=== PATIENT | male | born 1975 | race Caucasian/White ===

== ENCOUNTER 2018-12-12 12:19 | Inpatient (IN) | payer MEDICAID, SELFPAY ==
[2018-12-12] VITALS (7 sets, daily range): BP systolic 127–133; BP diastolic 79–98; PULSE 68–94; RESP 10–20; TEMP 36.4–36.8; O2SAT 92–96; BMI 28.5; BMI 28.1
--- NOTE | 2018-12-12 13:34 | ED.VIS.GEN ---
History of Present Illness Chief Complaint: Substance Abuse Informant: Patient, - - Documents from [facility] and [facility] Onset: - - History of alcoholism requesting detox Context: Sudden Onset - Patient reports symptoms withdrawal with tremors, palpitations, sweating and anxiousness Timing: Continuous Quality: Alcohol withdrawal Location: Not applicable Current Severity: Moderate Maximum Severity: Moderate Worsened by: Abstinence Associated Symptoms: Anxiousness, palpitations, tremors, diaphoresis Narrative: Patient was evaluated at [facility] in [facility]. He was to be a direct admit to [facility]. He was sent to the emergency department for clearance. Records accompanying him. He had a significant work-up. He presently is describing symptoms of withdrawal since he has not had anything to drink. Prior similar symptoms: Yes Recent Illness/Hospitalization: No - Past Medical History (1) Alcoholism Status: Acute Past Medical History - Allergies and Home Meds Allergies/Adverse Reactions: Allergies No Known Allergies Allergy (Verified 12/12/18 12:19) Primary Care Physician: Care Physician,No Primary [Primary Care Provider] - Prior records reviewed: Yes - Records from outside facility Surgical History: no surgical history Lives: Alone Smoking Status: Current every day smoker Alcohol: Heavy Review of Systems General: Reports: Malaise Eyes: Denies: Visual changes - bilaterally, Blurred Vision - bilaterally, Diplopia ENT: Denies: Bilateral ear pain, Rhinorrhea, Sore throat Cardiovascular: Reports: Palpitations. Denies: Chest pain, Heart racing Respiratory: Denies: Dyspnea, Cough, Dyspnea on exertion Gastrointestinal: Reports: Abdominal pain, Nausea Genitourinary: Denies: Dysuria, Hematuria, Frequency Musculoskeletal: Denies: Back pain, Extremity Pain Skin: Denies: Rash, Wounds Neurological: Denies: Headache, Weakness, Numbness Psych: Reports: Depression Hematologic: Denies: Easy bruising Allergy: Denies: Uticaria, Swelling of the mouth Physical Exam Vital Signs/Narrative: Vital Signs Temp Pulse Resp BP Pulse Ox 12/12/18 12:20 98.2 F 88 16 127/81 H 94 Inital Vital Signs reviewed: Yes General: Well nourished, Well developed, - - Patient appears anxious Head: Normocephalic, Atraumatic Eyes: Perrl, EOMI ENT: Moist mucous membranes, No rhinorrhea Neck: Supple, Nontender Cardiovascular: Regular rhythm, No murmurs, Normal S1, Normal S2, Tachycardia Respiratory: No distress, CTA bilaterally, Chest nontender Abdomen: Soft, Nontender, Nondistended, Normal bowel sounds Back: Nontender, Normal Inspection Extremities: Nontender, No edema Skin: Normal color, No rash Neurological: Alert, Oriented x3, Cranial nerves II-XII grossly intact, Normal Strength, Normal Sensation, Normal DTR - Deep tendon reflexes are 3-4+ and symmetric., - - Gait was not assessed. Psychological: Normal affect, Normal Mood Diagnostic/Tx/Re-eval - Medical Decision Making Records from outside facility reviewed. Patient has symptoms consistent with withdrawal. He is tachycardic, hyperreflexic, anxious and slightly diaphoretic. Valium was ordered IV. Charge nurse has been in communication with [facility] regarding his admission. ED Disposition - Plan for ED Patient: Disposition: Acute Care Hospital [facility] Diagnosis: Alcohol withdrawal seizure without complication Referrals: Care Physician,No Primary [Primary Care Provider] -
--- NOTE | 2018-12-12 13:40 | ED.RN ---
CALLED KAILASH FALL
[2018-12-12] MEDS: diazePAM 10 MG/2 ML Syringe 8 MG IV (13:54)
[2018-12-12] MEDS: Methocarbamol 750 MG Tablet PO (16:09)
[2018-12-12] MEDS: chlordiazePOXIDE 25 MG Capsule PO ×2 (16:09→20:52)
[2018-12-12] MEDS: Thiamine Hydrochloride 100 MG Tablet PO (16:09)
[2018-12-12] MEDS: Folic Acid 1 MG Tablet PO (16:10)
[2018-12-12] MEDS: Acetaminophen 500 MG Tablet PO ×2 (16:10→21:29)
[2018-12-12] MEDS: Ibuprofen 600 MG Tablet PO (16:10)
[2018-12-12] MEDS: LORazepam 2 MG/ML Syringe IV (16:23)
[2018-12-12] MEDS: 0.9% NaCl Peripheral Flush Adult/Peds IV ×2 (16:24→20:51)
--- NOTE | 2018-12-12 17:10 | HP.PCM_ITS ---
Problem List (1) Alcohol withdrawal Status: Acute Qualifiers: Complication of substance-induced condition: uncomplicated Qualified Code(s): F10.230 - Alcohol dependence with withdrawal, uncomplicated (2) Alcoholism Status: Chronic History of Present Illness Date of Admission: 12/12/18 Chief Complaint: Alcohol withdrawal, chronic alcoholism The patient is a 43 year old M who was seen in the emergency room at [facility] after being transferred from [facility] for alcohol detox. He had been seen in the emergency room at [facility], blood alcohol level was above 300, he had been given IV Ativan as well as oral phenobarbital at [facility] for withdrawal symptoms. Patient complains of tremor, agitation, diaphoresis, and increased heart rate. No labs were drawn in the emergency room. Medical stabilization program on [facility], patient denies any suicidal ideation and wants to go through detox program. Patient states that he has been through detox before and he has had periods of sobriety which have lasted 2 to 3 years at a time. Patient drinks 3-4 3 packs of 16 ounce but ice per day and vodka occasionally, denies any recreational drug usage or other drug usage. Past Medical History Past Medical History (Chronic Problems): Chronic Problems Alcoholism (Chronic) Allergies No Known Allergies Allergy (Verified 12/12/18 12:19) Home Medications: Ambulatory Orders Medication Instructions Recorded NK 12/12/18 Surgical History: no surgical history Psychiatric History: No pertinent psych hx Lives: Alone Smoking Status: Current every day smoker Tobacco Use: Cigarettes Alcohol: Heavy Drugs: None - *Family History Maternal History Items: Cancer - Lung cancer Paternal History Items: COPD Review of Systems Constitutional: Denies: Anorexia, Chills, Fever, Night Sweats, Malaise, Weakness, Weight Change, Fatigue Eyes: Denies: Cataracts, Conjunctivae Inflammation, Double vision HEENT: Denies: Difficulty Swallowing, Dysphasia, Ear Pain, Eye Pain, Hearing Changes, Nasal bleeding, Nasal Congestion, Post Nasal Drip Cardiovascular: Denies: Chest Pain, Claudication, Chest Pressure, Chest Tightness, Edema, Heaviness, Palpitations Respiratory: Denies: Cough, Hemoptysis, Pleuritic Pain, Shortness of Breath, Shortness of breath at rest, Shortness of breath upon exertion Gastrointestinal: Denies: Abdominal Pain, Constipation, Diarrhea, Hematemesis, Hematochezia, Nausea, Melena, Vomiting Genitourinary: Denies: Dysuria, Frequency, Hematuria, Hesitancy, Urgency Musculoskeletal: Denies: Back Pain, Foot Pain, Hand Pain, Joint Pain, Joint stiffness, Joint swelling, Joint Tenderness, Leg Pain Skin: Denies: Dryness, Pruritis, Rash Neurological: Reports: Tremor - Mild tremor currently. Denies: Balance problems, Blurred vision, Double vision, Change in Speech, Slurred speech, Confusion, Difficulty swallowing, Focal weakness, Headaches, Incoordination, Numbness, Tingling Psychiatric: Reports: Anxiety - he reports feeling anxious while going through withdrawal, he complains of some mild agitation, diaphoresis, and tremor.. Denies: Depression, Homicidal Ideations, Suicidal Ideations Endocrine: Denies: Change in Body Habitus, Heat/ Cold Intolerance, Polydipsia, Polyuria Hematologic/ Lymphatic: Denies: Adenopathy, Anemia, Easy Bruising, Easy Bleeding, Petechiae, Purpura VTE Information - Inpt Only VTE Present on Admission: No VTE Mechan Device Prophylaxis: None VTE Pharm Prophylaxis ordered?: No Reason prophylaxis not ordered:: Treatment Not Indicated Patient Problems: Active and Suspected Problems Alcohol withdrawal (Acute) - Physical Exam General: Alert, Oriented x3, Cooperative, Well developed, Well nourished, - - Patient appears to be anxious, he is alert and oriented x3, he appears tremorous HEENT: Atraumatic, PERRLA, EOMI, Normocephalic Oral: Moist Mucosa Neck: Supple, No JVD, Negative Carotid Bruits, No Nuchal Rigidity, Trachea Midline, Thyroid Normal Size and Texture Lungs: Clear to auscultation, Normal air movement, No rhonchi, No wheeze, No rales Cardiovascular: Regular rate, Regular Rhythm, Normal S1, Normal S2, No murmurs, No Ectopic Activity Abdomen: Bowel Sounds Present, Soft, Non Tender, Non-Distended, No hernias noted Extremities: No clubbing, No cyanosis, No edema, Capillary Refill Less than 3 Seconds Skin: No rashes, No breakdown Musculoskeletal: No Tenderness to Palpation of Joints or Extremities Neurological: Cranial nerves II-XII grossly intact, Neuro grossly intact, Muscle tone normal, Sensory exam intact to light touch and pain Psych/Mental Status: Normal Affect, Appropriate, Alert and oriented to time, place, person, mood and affect Vital Signs Temp Pulse Resp BP Pulse Ox 98.2 F 81 18 133/98 H 96 12/12/18 15:45 12/12/18 15:45 12/12/18 15:45 12/12/18 15:45 12/12/18 15:45 Oxygen Delivery Method Room Air Weight: 94.1 kg Body Mass Index (BMI) 28.1 Assessment/Plan All Active Problems Alcohol withdrawal seizure without complication (Ruled-out) Alcohol withdrawal (Acute) #1 acute alcohol withdrawal without complications-[facility], order sets were filled out and patient will be monitored. [facility] will see the patient for outpatient follow-up arrangements #2 chronic alcoholism Code Visit Inpatient E&M: 36944 Init Hosp L3
[2018-12-12] MEDS: LORazepam 1 MG Tablet 2 MG PO (18:40)
[2018-12-13] VITALS (11 sets, daily range): BP systolic 108–130; BP diastolic 71–90; PULSE 78–91; RESP 16–20; TEMP 36.3–36.8; O2SAT 94–98
[2018-12-13] MEDS: cloNIDine HCl 0.1 MG Tablet PO ×4 (01:20→21:14)
[2018-12-13] MEDS: hydrOXYzine PAM 25 MG Capsule 50 MG PO ×2 (01:20→21:14)
[2018-12-13] MEDS: Dicyclomine 10 MG Capsule 20 MG PO ×3 (01:20→16:15)
[2018-12-13] MEDS: chlordiazePOXIDE 25 MG Capsule PO ×3 (03:05→16:17)
[2018-12-13] MEDS: Ibuprofen 600 MG Tablet PO ×2 (07:04→16:15)
[2018-12-13 08:11] LABS: Absolute Lymphocyte Count 1.65 X10^3/ul (0.83-4.51); Absolute Neutrophil Count 3.3 X10^3/uL (2.0-7.7); Basophil# 0.02 X10^3/uL; Basophil% 0.4 % (0-1); Eosinophil# 0.19 X10^3/uL; Eosinophils% 3.5 % (0-5); Hematocrit 43.7 % (40-54); Hemoglobin 14.9 g/dl (13.0-16.5); Lymphocyte # 1.65 X10^3/ul (4.0); Mean Corp Hgb Conc 34.1 g/gl (32-36); Mean Corpuscular Hgb 31.2 pg (27.0-32.0); Mean Corpuscular Volume 91.4 fL (80-94); Mean Platelet Vol. 9.8 fl (6.2-12.0); Monocyte# 0.31 X10^3/uL; Monocyte% 5.6 % (0-10); Neutrophil # 3.32 X10^3/uL (2.7-7.7); Neutrophil % 60.3 % (47-70); POSITIVE COUNT NO; POSITIVE DIFFERENTIAL NO; POSITIVE MORPHOLOGY NO; Platelet Count 184 K/mm3 (150-450); RBC Distribution Width CV 13.9 % (11.6-14.6); RBC Distribution Width SD 45.9 fl (35.1-43.9); Red Blood Count 4.78 M/mm3 (4.6-6.2); White Blood Count 5.5 K/mm3 (4.4-11.0)
[2018-12-13 08:23] LABS: International Normalized Ratio 1.1; Prothrombin Time (Protime)PT. 13.6 SECONDS (11.7-14.9)
[2018-12-13 08:31] LABS: ALB/GLOB Ratio 0.9 RATIO (0.9-2.4); AST(SGOT) 155 U/L (15-37); Alanine Aminotransfer ALT/SGPT 147 U/L (16-61); Albumin, Serum 3.3 g/dL (3.2-5.0); Alkaline Phosphatase 78 U/L (45-117); Anion Gap 3 (5-15); BUN 17 mg/dL (7-18); BUN/Creat Ratio 19.3 RATIO (10-20); Calcium,Total 8.5 mg/dL (8.5-10.1); Chloride 106 mmol/L (98-107); Creatinine, Serum 0.88 mg/dL (0.70-1.30); EST Glomerular Filtration Rate 100 mL/min (>60); Est Glom Filt Rate - Afr Amer 121 mL/min (>60); GGTP 166 U/L (15-85); Globulin 3.8 g/dL (2.2-4.2); Glucose 102 mg/dL (74-106); Magnesium 1.9 mg/dL (1.6-2.6); Phosphorus 3.7 mg/dL (2.5-4.9); Potassium 3.8 mmol/L (3.5-5.1); Protein, Total 7.1 g/dL (6.4-8.2); Sodium Level 137 mmol/L (136-145)
[2018-12-13] MEDS: Folic Acid 1 MG Tablet PO (09:06)
[2018-12-13] MEDS: Thiamine Hydrochloride 100 MG Tablet PO (09:06)
[2018-12-13] MEDS: Multivitamins,Therapeutic Tablet 1 TABLET PO (09:07)
--- NOTE | 2018-12-13 09:38 | PCM.PN.HOSP ---
Patient Problems: Active and Suspected Problems Alcohol withdrawal (Acute) Subjective: The patient was admitted with acute alcohol withdrawal syndrome. Patient drinks alcohol heavily, vodka a day along with 3 cane of 24 ounce [place] Light. Denies GI bleed, hematemesis, melena or hematochezia. No prior history of EGD or colonoscopy. Patient still has tremors and second Nava. Complain of mild loose bowel movement and abdominal cramps. Has blurry vision but denies visual, auditory or tactile hallucinations. Labs shows elevated transaminases, GGT and total bilirubin 1.5 suggestive of alcoholic hepatitis. INR 1.1. Vitals/I&O's: Vital Signs Temp Pulse Resp BP Pulse Ox 97.6 F L 87 18 117/90 H 94 12/13/18 06:53 12/13/18 06:53 12/13/18 06:53 12/13/18 06:53 12/13/18 06:53 Oxygen Delivery Method Room Air Weight: 207 lb 7.28 oz Body Mass Index (BMI) 28.1 Intake and Output for Last 24 Hours 12/11/18 12/12/18 12/13/18 23:59 23:59 23:59 Intake Total 550 / 550 100 / 100 Balance 550 / 550 100 / 100 General: Alert, Oriented x3, Cooperative HEENT: Atraumatic, PERRLA, EOMI, Normocephalic Neck: Supple, No JVD, Negative Carotid Bruits Lungs: Clear to auscultation, No rhonchi, No wheeze, No rales, Diminished Cardiovascular: Regular rate, Regular Rhythm, Normal S1, Normal S2, No murmurs Abdomen: Bowel Sounds Present, Soft, Non Tender, Non-Distended Extremities: No edema, Capillary Refill Less than 3 Seconds Skin: No rashes, No breakdown Musculoskeletal: No Tenderness to Palpation of Joints or Extremities Neurological: Cranial nerves II-XII grossly intact, Deep Tendon Reflexes 2+/4 and Symmetrical, Neuro grossly intact Psych/Mental Status: Anxious, Restless, Alert and oriented to time, place, person, mood and affect Laboratory Results 12/13/18 07:45: WBC 5.5, RBC 4.78, Hgb 14.9, Hct 43.7, MCV 91.4, MCH 31.2, MCHC 34.1, RDW 13.9, RDW Differential 45.9 H, Plt Count 184, MPV 9.8, Immature Gran % (Auto) 0.200, Neut % (Auto) 60.3, Lymph % (Auto) 30.0, [place] % (Auto) 5.6, Eos % (Auto) 3.5, Baso % (Auto) 0.4, Absolute Neuts (auto) 3.3, Absolute Lymphs (auto) 1.65, Total Counted Not Reportable 12/13/18 07:45: PT 13.6, INR 1.1 12/13/18 07:45: Sodium 137, Potassium 3.8, Chloride 106, Carbon Dioxide 28.0, Anion Gap 3 L, BUN 17, Creatinine 0.88, Estim Creat Clear Calc 118.80, Est GFR (MDRD) Af Amer 121, Est GFR (MDRD) Non-Af 100, BUN/Creatinine Ratio 19.3, Glucose 102, Calcium 8.5, Phosphorus 3.7, Magnesium 1.9, Total Bilirubin 1.50 H, GGT 166 H, AST 155 H, ALT 147 H, Alkaline Phosphatase 78, Total Protein 7.1, Albumin 3.3, Globulin 3.8, Albumin/Globulin Ratio 0.9 Current Medications Acetaminophen (Tylenol) 500 mg PO Q4H PRN PRN PRN Reason: Temp > 100.4 F Last Admin: 12/12/18 21:29 Dose: 500 mg Chlordiazepoxide (Librium) 50 mg PO Q8H WANG; Taper Stop: 12/15/18 16:59 Last Admin: 12/13/18 09:20 Dose: 50 mg Clonidine (Catapres) 0.1 mg PO Q2H PRN PRN PRN Reason: sweats Last Admin: 12/13/18 01:20 Dose: 0.1 mg Dicyclomine HCl (Bentyl) 20 mg PO Q6H PRN PRN PRN Reason: cramping Last Admin: 12/13/18 09:06 Dose: 20 mg Folic Acid (Folic Acid) 1 mg PO DAILYCM WANG Stop: 12/14/18 08:01 Last Admin: 12/13/18 09:06 Dose: 1 mg Hydroxyzine Pamoate (Vistaril Pamoate Capsule) 50 mg PO Q6H PRN PRN PRN Reason: ANXIETY Last Admin: 12/13/18 01:20 Dose: 50 mg Sodium Chloride () 250 mls @ 15 mls/hr IV .[id number] PRN PRN Reason: SALINE FLUSH Ibuprofen (Motrin) 600 mg PO Q8H PRN PRN PRN Reason: Mild-Moderate Pain (1-5/10) Last Admin: 12/13/18 07:04 Dose: 600 mg Lorazepam (Ativan) 2 mg PO Q2H PRN PRN; Protocol PRN Reason: CIWA score > 8 but <15 Last Admin: 12/12/18 18:40 Dose: 2 mg Lorazepam (Ativan) 2 mg IV Q2H PRN PRN; Protocol PRN Reason: CIWA score > 8 but <15 Lorazepam (Ativan) 1 mg IV Q4H PRN PRN PRN Reason: Severe Anxiety Lorazepam (Ativan) 2 mg IV X1 PRN PRN Reason: Seizure Lorazepam (Ativan) 2 mg PO UD PRN; Protocol PRN Reason: CIWA score >/=15. Lorazepam (Ativan) 2 mg IV UD PRN; Protocol PRN Reason: CIWA score >/=15. Last Admin: 12/12/18 16:23 Dose: 2 mg Methocarbamol (Methocarbamol) 750 mg PO Q6H PRN PRN PRN Reason: Muscle Aches Last Admin: 12/12/18 16:09 Dose: 750 mg [facility] Last Admin: 12/13/18 09:07 Dose: 1 tablet Nicotine (Nicoderm Cq (Pbkc)) 21 mg TRANSDERM. DAILY [facility] Last Admin: 12/13/18 09:07 Dose: 21 mg Sodium Chloride () 5 - 15 ml IV UD PRN PRN Reason: SALINE FLUSH Last Admin: 12/12/18 20:51 Dose: 10 ml Thiamine HCl (Vitamin B1) [facility] Stop: 12/14/18 08:01 Last Admin: 12/13/18 09:06 Dose: 100 mg Medical Necessity - Tobacco Use Smoking Status: Current every day smoker Tobacco Use: Cigarettes Assessment/Plan All Active Problems Alcohol withdrawal seizure without complication (Ruled-out) Alcohol withdrawal (Acute) This is a 43-year-old gentleman with history of chronic alcohol use vodka every day along with 3 cane of 24 ounce [place] Light and chronic smoker was admitted on [facility] floor for acute alcohol withdrawal syndrome. Patient was [facility] from [facility] to [facility] ER with alcohol level more than 300. Patient was given IV Ativan and oral phenobarbital. Patient has history of sobriety for 2 to 3 years after alcohol detox last time. Denies other substance use or recreational use or drugs including [id number] cold medications. Denies GI bleed, hematemesis, melena or hematochezia. No prior history of EGD or colonoscopy. 1. Acute alcohol withdrawal syndrome: Patient still has tremors, anxiety and restlessness. Complain of mild loose bowel movement and abdominal cramps. Has blurry vision but denies visual, auditory or tactile hallucinations. On order set for medical stabilization for alcohol withdrawal. emergency department manager consult for [facility]. CIWA 7 2. Chronic alcohol use and dependence with alcoholic hepatitis: Labs shows elevated transaminases AST 155, ALT 147, GGT 166 and total bilirubin 1.5 suggestive of alcoholic hepatitis. INR 1.1. 3. Chronic smoker: On nicotine patch. Smoking cessation and alcohol cessation advised Laboratory Results 12/13/18 07:45: WBC 5.5, RBC 4.78, Hgb 14.9, Hct 43.7, MCV 91.4, MCH 31.2, MCHC 34.1, RDW 13.9, RDW Differential 45.9 H, Plt Count 184, MPV 9.8, Immature Gran % (Auto) 0.200, Neut % (Auto) 60.3, Lymph % (Auto) 30.0, [place] % (Auto) 5.6, Eos % (Auto) 3.5, Baso % (Auto) 0.4, Absolute Neuts (auto) 3.3, Absolute Lymphs (auto) 1.65, Total Counted Not Reportable 12/13/18 07:45: PT 13.6, INR 1.1 12/13/18 07:45: Sodium 137, Potassium 3.8, Chloride 106, Carbon Dioxide 28.0, Anion Gap 3 L, BUN 17, Creatinine 0.88, Estim Creat Clear Calc 118.80, Est GFR (MDRD) Af Amer 121, Est GFR (MDRD) Non-Af 100, BUN/Creatinine Ratio 19.3, Glucose 102, Calcium 8.5, Phosphorus 3.7, Magnesium 1.9, Total Bilirubin 1.50 H, GGT 166 H, AST 155 H, ALT 147 H, Alkaline Phosphatase 78, Total Protein 7.1, Albumin 3.3, Globulin 3.8, Albumin/Globulin Ratio 0.9 Code Visit Inpatient E&M: 82274 Subs Hosp L3
--- NOTE | 2018-12-13 09:50 | PN_ITS ---
Patient Problems: Active and Suspected Problems Alcohol withdrawal (Acute) Subjective: The patient was admitted with acute alcohol withdrawal syndrome. Patient drinks alcohol heavily, vodka a day along with 3 cane of 24 ounce [place] Light. Denies GI bleed, hematemesis, melena or hematochezia. No prior history of EGD or colonoscopy. Patient still has tremors and second Nava. Complain of mild loose bowel movement and abdominal cramps. Has blurry vision but denies visual, auditory or tactile hallucinations. Labs shows elevated transaminases, GGT and total bilirubin 1.5 suggestive of alcoholic hepatitis. INR 1.1. Vitals/I&O's: Vital Signs Temp Pulse Resp BP Pulse Ox 97.6 F L 87 18 117/90 H 94 12/13/18 06:53 12/13/18 06:53 12/13/18 06:53 12/13/18 06:53 12/13/18 06:53 Oxygen Delivery Method Room Air Weight: 207 lb 7.28 oz Body Mass Index (BMI) 28.1 Intake and Output for Last 24 Hours 12/11/18 12/12/18 12/13/18 23:59 23:59 23:59 Intake Total 550 / 550 100 / 100 Balance 550 / 550 100 / 100 General: Alert, Oriented x3, Cooperative HEENT: Atraumatic, PERRLA, EOMI, Normocephalic Neck: Supple, No JVD, Negative Carotid Bruits Lungs: Clear to auscultation, No rhonchi, No wheeze, No rales, Diminished Cardiovascular: Regular rate, Regular Rhythm, Normal S1, Normal S2, No murmurs Abdomen: Bowel Sounds Present, Soft, Non Tender, Non-Distended Extremities: No edema, Capillary Refill Less than 3 Seconds Skin: No rashes, No breakdown Musculoskeletal: No Tenderness to Palpation of Joints or Extremities Neurological: Cranial nerves II-XII grossly intact, Deep Tendon Reflexes 2+/4 and Symmetrical, Neuro grossly intact Psych/Mental Status: Anxious, Restless, Alert and oriented to time, place, person, mood and affect Laboratory Results 12/13/18 07:45: WBC 5.5, RBC 4.78, Hgb 14.9, Hct 43.7, MCV 91.4, MCH 31.2, MCHC 34.1, RDW 13.9, RDW Differential 45.9 H, Plt Count 184, MPV 9.8, Immature Gran % (Auto) 0.200, Neut % (Auto) 60.3, Lymph % (Auto) 30.0, [place] % (Auto) 5.6, Eos % (Auto) 3.5, Baso % (Auto) 0.4, Absolute Neuts (auto) 3.3, Absolute Lymphs (auto) 1.65, Total Counted Not Reportable 12/13/18 07:45: PT 13.6, INR 1.1 12/13/18 07:45: Sodium 137, Potassium 3.8, Chloride 106, Carbon Dioxide 28.0, Anion Gap 3 L, BUN 17, Creatinine 0.88, Estim Creat Clear Calc 118.80, Est GFR (MDRD) Af Amer 121, Est GFR (MDRD) Non-Af 100, BUN/Creatinine Ratio 19.3, Glucose 102, Calcium 8.5, Phosphorus 3.7, Magnesium 1.9, Total Bilirubin 1.50 H, GGT 166 H, AST 155 H, ALT 147 H, Alkaline Phosphatase 78, Total Protein 7.1, Albumin 3.3, Globulin 3.8, Albumin/Globulin Ratio 0.9 Current Medications Acetaminophen (Tylenol) 500 mg PO Q4H PRN PRN PRN Reason: Temp > 100.4 F Last Admin: 12/12/18 21:29 Dose: 500 mg Chlordiazepoxide (Librium) 50 mg PO Q8H WANG; Taper Stop: 12/15/18 16:59 Last Admin: 12/13/18 09:20 Dose: 50 mg Clonidine (Catapres) 0.1 mg PO Q2H PRN PRN PRN Reason: sweats Last Admin: 12/13/18 01:20 Dose: 0.1 mg Dicyclomine HCl (Bentyl) 20 mg PO Q6H PRN PRN PRN Reason: cramping Last Admin: 12/13/18 09:06 Dose: 20 mg Folic Acid (Folic Acid) 1 mg PO DAILYCM WANG Stop: 12/14/18 08:01 Last Admin: 12/13/18 09:06 Dose: 1 mg Hydroxyzine Pamoate (Vistaril Pamoate Capsule) 50 mg PO Q6H PRN PRN PRN Reason: ANXIETY Last Admin: 12/13/18 01:20 Dose: 50 mg Sodium Chloride () 250 mls @ 15 mls/hr IV .[id number] PRN PRN Reason: SALINE FLUSH Ibuprofen (Motrin) 600 mg PO Q8H PRN PRN PRN Reason: Mild-Moderate Pain (1-5/10) Last Admin: 12/13/18 07:04 Dose: 600 mg Lorazepam (Ativan) 2 mg PO Q2H PRN PRN; Protocol PRN Reason: CIWA score > 8 but <15 Last Admin: 12/12/18 18:40 Dose: 2 mg Lorazepam (Ativan) 2 mg IV Q2H PRN PRN; Protocol PRN Reason: CIWA score > 8 but <15 Lorazepam (Ativan) 1 mg IV Q4H PRN PRN PRN Reason: Severe Anxiety Lorazepam (Ativan) 2 mg IV X1 PRN PRN Reason: Seizure Lorazepam (Ativan) 2 mg PO UD PRN; Protocol PRN Reason: CIWA score >/=15. Lorazepam (Ativan) 2 mg IV UD PRN; Protocol PRN Reason: CIWA score >/=15. Last Admin: 12/12/18 16:23 Dose: 2 mg Methocarbamol (Methocarbamol) 750 mg PO Q6H PRN PRN PRN Reason: Muscle Aches Last Admin: 12/12/18 16:09 Dose: 750 mg [facility]it[facility]) [facility] Last Admin: 12/13/18 09:07 Dose: 1 tablet Nicotine (Nicoderm Cq (Pbkc)) 21 mg TRANSDERM. DAILY [facility] Last Admin: 12/13/18 09:07 Dose: 21 mg Sodium Chloride () 5 - 15 ml IV UD PRN PRN Reason: SALINE FLUSH Last Admin: 12/12/18 20:51 Dose: 10 ml Thiamine HCl (Vitamin B1) [facility] Stop: 12/14/18 08:01 Last Admin: 12/13/18 09:06 Dose: 100 mg Medical Necessity - Tobacco Use Smoking Status: Current every day smoker Tobacco Use: Cigarettes Assessment/Plan All Active Problems Alcohol withdrawal seizure without complication (Ruled-out) Alcohol withdrawal (Acute) This is a 43-year-old gentleman with history of chronic alcohol use vodka every day along with 3 cane of 24 ounce [place] Light and chronic smoker was admitted on [facility] floor for acute alcohol withdrawal syndrome. Patient was transferred from [facility] to [facility] ER with alcohol level more than 300. Patient was given IV Ativan and oral phenobarbital. Patient has history of sobriety for 2 to 3 years after alcohol detox last time. Denies other substance use or recreational use or drugs including kuii-qnr-lidarrx cold medications. Denies GI bleed, hematemesis, melena or hematochezia. No prior history of EGD or colonoscopy. 1. Acute alcohol withdrawal syndrome: Patient still has tremors, anxiety and restlessness. Complain of mild loose bowel movement and abdominal cramps. Has blurry vision but denies visual, auditory or tactile hallucinations. On order set for medical stabilization for alcohol withdrawal. water quality manager consult for [facility]. CIWA 7 2. Chronic alcohol use and dependence with alcoholic hepatitis: Labs shows elevated transaminases AST 155, ALT 147, GGT 166 and total bilirubin 1.5 suggestive of alcoholic hepatitis. INR 1.1. 3. Chronic smoker: On nicotine patch. Smoking cessation and alcohol cessation advised Laboratory Results 12/13/18 07:45: WBC 5.5, RBC 4.78, Hgb 14.9, Hct 43.7, MCV 91.4, MCH 31.2, MCHC 34.1, RDW 13.9, RDW Differential 45.9 H, Plt Count 184, MPV 9.8, Immature Gran % (Auto) 0.200, Neut % (Auto) 60.3, Lymph % (Auto) 30.0, [place] % (Auto) 5.6, Eos % (Auto) 3.5, Baso % (Auto) 0.4, Absolute Neuts (auto) 3.3, Absolute Lymphs (auto) 1.65, Total Counted Not Reportable 12/13/18 07:45: PT 13.6, INR 1.1 12/13/18 07:45: Sodium 137, Potassium 3.8, Chloride 106, Carbon Dioxide 28.0, Anion Gap 3 L, BUN 17, Creatinine 0.88, Estim Creat Clear Calc 118.80, Est GFR (MDRD) Af Amer 121, Est GFR (MDRD) Non-Af 100, BUN/Creatinine Ratio 19.3, Glucose 102, Calcium 8.5, Phosphorus 3.7, Magnesium 1.9, Total Bilirubin 1.50 H, GGT 166 H, AST 155 H, ALT 147 H, Alkaline Phosphatase 78, Total Protein 7.1, Albumin 3.3, Globulin 3.8, Albumin/Globulin Ratio 0.9 Code Visit Inpatient E&M: [id number] Subs Hosp L3
[2018-12-13] MEDS: LORazepam 1 MG Tablet 2 MG PO ×3 (10:26→17:27)
[2018-12-13] MEDS: Ondansetron ODT 4 MG Tablet PO (10:26)
[2018-12-13] MEDS: Loperamide 2 MG Capsule PO (10:27)
--- NOTE | 2018-12-13 16:26 | NEWVISION ---
Patient has an appointment for AOD/Behavioral Health for 12/15/2018 at 10am or to be rescheduled if patient has not been discharged in time. Patient has a psychiatry appointment with Dr Clark on [facility] at 10am, or sooner if they are able to move it sooner. Transportation provided upon discharge by patients girlfriend.
--- NOTE | 2018-12-13 16:28 | CHAPLAIN ---
Type of Pastoral Visit _x__ Initial Visit ___ Follow-up Visit ___ On-call Visit ___ General Patient Visit ___ Spiritual Assessment ___ Family Conference ___ Bereavement ___ Rapid Response ___ Code Blue ___ Other (describe below) Pastoral Care Referral From ___ Patient ___ Family ___ Nurse ___ Physician ___ Set Painter ___ Cooking Instructor _x - [employer] Staff Other (describe below) Sacrament/Intervention _x__ Active listening ___ Anointing ___ Pentecostal ___ Bereavement ___ Communion ___ Irais exploration ___ ___ Life review _x__ Prayer ___ Reconciliation ___ Sacrament of Sick ___ Supportive presence ___ Wedding ___ Other (describe below) Pastoral Comments patient asks this field merchandiser to return tomorrow when he is feeling better; pt welcomes prayer support
[2018-12-13] MEDS: Mag Hydrox/Al Hydrox/Simeth 30 ML UDC PO (17:27)
[2018-12-14] VITALS (9 sets, daily range): BP systolic 116–123; BP diastolic 69–87; PULSE 70–90; RESP 14–18; TEMP 36.3–36.7; O2SAT 95–100
[2018-12-14] MEDS: chlordiazePOXIDE 25 MG Capsule PO ×3 (01:42→16:59)
[2018-12-14] MEDS: Loperamide 2 MG Capsule PO ×2 (09:29→15:12)
[2018-12-14] MEDS: Thiamine Hydrochloride 100 MG Tablet PO (09:30)
[2018-12-14] MEDS: Ibuprofen 600 MG Tablet PO ×2 (09:30→20:50)
[2018-12-14] MEDS: Multivitamins,Therapeutic Tablet 1 TABLET PO (09:30)
[2018-12-14] MEDS: LORazepam 1 MG Tablet 2 MG PO ×4 (09:30→20:51)
[2018-12-14] MEDS: cloNIDine HCl 0.1 MG Tablet PO ×3 (09:30→20:51)
[2018-12-14] MEDS: Dicyclomine 10 MG Capsule 20 MG PO (09:31)
--- NOTE | 2018-12-14 10:31 | PCM.PN.HOSP ---
Patient Problems: Active and Suspected Problems Alcohol withdrawal (Acute) Subjective: Patient is still has shaking. Patient has history of mood swing although never have been evaluated for bipolar disorder by psychiatrist. Denies hallucination or delusion. Vitals/I&O's: Vital Signs Temp Pulse Resp BP Pulse Ox 97.4 F L 71 14 118/74 95 12/14/18 09:20 12/14/18 09:20 12/14/18 09:20 12/14/18 09:20 12/14/18 09:18 Oxygen Delivery Method Room Air Weight: 207 lb 7.28 oz Body Mass Index (BMI) 28.1 Intake and Output for Last 24 Hours 12/12/18 12/13/18 12/14/18 23:59 23:59 23:59 Intake Total 550 / 550 800 / 800 640 / 640 Balance 550 / 550 800 / 800 640 / 640 General: Alert, Oriented x3, Cooperative HEENT: Atraumatic, PERRLA, EOMI, Normocephalic Neck: Supple, No JVD, Negative Carotid Bruits Lungs: Clear to auscultation, Normal air movement, No rhonchi, No wheeze, No rales Cardiovascular: Regular rate, Regular Rhythm, Normal S1, Normal S2, No murmurs Abdomen: Bowel Sounds Present, Soft, Non Tender, Non-Distended Extremities: No edema, Capillary Refill Less than 3 Seconds Skin: No rashes, No breakdown Musculoskeletal: No Tenderness to Palpation of Joints or Extremities Neurological: Cranial nerves II-XII grossly intact, Deep Tendon Reflexes 2+/4 and Symmetrical, Neuro grossly intact, Unsteady Gait Psych/Mental Status: Normal Affect, Appropriate Current Medications Acetaminophen (Tylenol) 500 mg PO Q4H PRN PRN PRN Reason: Temp > 100.4 F Last Admin: 12/12/18 21:29 Dose: 500 mg Al Hydroxide/Mg Hydroxide (Mylanta Ii) 30 ml PO Q6H PRN PRN PRN Reason: dyspesia Last Admin: 12/13/18 17:27 Dose: 30 ml Bisacodyl (Dulcolax) 10 mg RECTAL DAILY PRN PRN Reason: Constipation Chlordiazepoxide (Librium) 50 mg PO Q8H WANG; Taper Stop: 12/15/18 16:59 Last Admin: 12/14/18 09:30 Dose: 50 mg Clonidine (Catapres) 0.1 mg PO Q2H PRN PRN PRN Reason: sweats Last Admin: 12/14/18 09:30 Dose: 0.1 mg Dicyclomine HCl (Bentyl) 20 mg PO Q6H PRN PRN PRN Reason: cramping Last Admin: 12/14/18 09:31 Dose: 20 mg Hydroxyzine Pamoate (Vistaril Pamoate Capsule) 50 mg PO Q6H PRN PRN PRN Reason: ANXIETY Last Admin: 12/13/18 21:14 Dose: 50 mg Sodium Chloride () 250 mls @ 15 mls/hr IV .[id number] PRN PRN Reason: SALINE FLUSH Ibuprofen (Motrin) 600 mg PO Q8H PRN PRN PRN Reason: Mild-Moderate Pain (1-5/10) Last Admin: 12/14/18 09:30 Dose: 600 mg Loperamide HCl (Imodium) 2 - 4 mg PO UD PRN PRN Reason: LOOSE STOOLS Last Admin: 12/14/18 09:29 Dose: 2 mg Lorazepam (Ativan) 2 mg PO Q2H PRN PRN; Protocol PRN Reason: CIWA score > 8 but <15 Last Admin: 12/14/18 09:30 Dose: 2 mg Lorazepam (Ativan) 2 mg IV Q2H PRN PRN; Protocol PRN Reason: CIWA score > 8 but <15 Lorazepam (Ativan) 1 mg IV Q4H PRN PRN PRN Reason: Severe Anxiety Lorazepam (Ativan) 2 mg IV X1 PRN PRN Reason: Seizure Lorazepam (Ativan) 2 mg PO UD PRN; Protocol PRN Reason: CIWA score >/=15. Last Admin: 12/13/18 17:27 Dose: 2 mg Lorazepam (Ativan) 2 mg IV UD PRN; Protocol PRN Reason: CIWA score >/=15. Last Admin: 12/12/18 16:23 Dose: 2 mg Methocarbamol (Methocarbamol) 750 mg PO Q6H PRN PRN PRN Reason: Muscle Aches Last Admin: 12/12/18 16:09 Dose: 750 mg Multivitamins (Multivitamin) 1 tablet PO DAILYCM WANG Last Admin: 12/14/18 09:30 Dose: 1 tablet Nicotine (Nicoderm Cq (Pbkc)) 21 mg TRANSDERM. DAILY WANG Last Admin: 12/14/18 09:31 Dose: 21 mg Ondansetron HCl (Zofran Odt) 4 mg PO Q6H PRN PRN PRN Reason: NAUSEA Last Admin: 12/13/18 10:26 Dose: 4 mg Senna (Senokot) 1 tablet PO QHS PRN PRN Reason: Constipation Sodium Chloride () 5 - 15 ml IV UD PRN PRN Reason: SALINE FLUSH Last Admin: 12/12/18 20:51 Dose: 10 ml Medical Necessity - Tobacco Use Smoking Status: Current every day smoker Tobacco Use: Cigarettes Assessment/Plan All Active Problems Alcohol withdrawal seizure without complication (Ruled-out) Alcohol withdrawal (Acute) This is a 43-year-old gentleman with history of chronic alcohol use vodka every day along with 3 cane of 24 ounce [place] Light and chronic smoker was admitted on [facility] floor for acute alcohol withdrawal syndrome. Patient was transferred from [facility] to [facility] ER with alcohol level more than 300. Patient was given IV Ativan and oral phenobarbital. Patient has history of sobriety for 2 to 3 years after alcohol detox last time. Denies other substance use or recreational use or drugs including sstd-myn-bwaycur cold medications. Denies GI bleed, hematemesis, melena or hematochezia. No prior history of EGD or colonoscopy. 1. Acute alcohol withdrawal syndrome: Patient still has tremors, anxiety and restlessness. Complain of mild loose bowel movement and abdominal cramps. Has blurry vision but denies visual, auditory or tactile hallucinations. On order set for medical stabilization for alcohol withdrawal. ramp manager consult for [facility] [employer]. JUSTIN Jaramillo Discussed with the [employer] test case developer, Lucinda. She requested antidepressant medication for the patient as he has history of depression and relapse. Currently patient is on trazodone. Will discharge on low-dose of Seroquel. 2. Chronic alcohol use and dependence with alcoholic hepatitis: Labs shows elevated transaminases AST 155, ALT 147, GGT 166 and total bilirubin 1.5 suggestive of alcoholic hepatitis. INR 1.1. 3. Chronic smoker: On nicotine patch. Smoking cessation and alcohol cessation advised Laboratory Results 12/13/18 07:45: WBC 5.5, RBC 4.78, Hgb 14.9, Hct 43.7, MCV 91.4, MCH 31.2, MCHC 34.1, RDW 13.9, RDW Differential 45.9 H, Plt Count 184, MPV 9.8, Immature Gran % (Auto) 0.200, Neut % (Auto) 60.3, Lymph % (Auto) 30.0, [place] % (Auto) 5.6, Eos % (Auto) 3.5, Baso % (Auto) 0.4, Absolute Neuts (auto) 3.3, Absolute Lymphs (auto) 1.65, Total Counted Not Reportable 12/13/18 07:45: PT 13.6, INR 1.1 12/13/18 07:45: Sodium 137, Potassium 3.8, Chloride 106, Carbon Dioxide 28.0, Anion Gap 3 L, BUN 17, Creatinine 0.88, Estim Creat Clear Calc 118.80, Est GFR (MDRD) Af Amer 121, Est GFR (MDRD) Non-Af 100, BUN/Creatinine Ratio 19.3, Glucose 102, Calcium 8.5, Phosphorus 3.7, Magnesium 1.9, Total Bilirubin 1.50 H, GGT 166 H, AST 155 H, ALT 147 H, Alkaline Phosphatase 78, Total Protein 7.1, Albumin 3.3, Globulin 3.8, Albumin/Globulin Ratio 0.9 Code Visit Inpatient E&M: 95944 Subs Hosp L2
--- NOTE | 2018-12-14 10:34 | PN_ITS ---
Patient Problems: Active and Suspected Problems Alcohol withdrawal (Acute) Subjective: Patient is still has shaking. Patient has history of mood swing although never have been evaluated for bipolar disorder by psychiatrist. Denies hallucination or delusion. Vitals/I&O's: Vital Signs Temp Pulse Resp BP Pulse Ox 97.4 F L 71 14 118/74 95 12/14/18 09:20 12/14/18 09:20 12/14/18 09:20 12/14/18 09:20 12/14/18 09:18 Oxygen Delivery Method Room Air Weight: 207 lb 7.28 oz Body Mass Index (BMI) 28.1 Intake and Output for Last 24 Hours 12/12/18 12/13/18 12/14/18 23:59 23:59 23:59 Intake Total 550 / 550 800 / 800 640 / 640 Balance 550 / 550 800 / 800 640 / 640 General: Alert, Oriented x3, Cooperative HEENT: Atraumatic, PERRLA, EOMI, Normocephalic Neck: Supple, No JVD, Negative Carotid Bruits Lungs: Clear to auscultation, Normal air movement, No rhonchi, No wheeze, No rales Cardiovascular: Regular rate, Regular Rhythm, Normal S1, Normal S2, No murmurs Abdomen: Bowel Sounds Present, Soft, Non Tender, Non-Distended Extremities: No edema, Capillary Refill Less than 3 Seconds Skin: No rashes, No breakdown Musculoskeletal: No Tenderness to Palpation of Joints or Extremities Neurological: Cranial nerves II-XII grossly intact, Deep Tendon Reflexes 2+/4 and Symmetrical, Neuro grossly intact, Unsteady Gait Psych/Mental Status: Normal Affect, Appropriate Current Medications Acetaminophen (Tylenol) 500 mg PO Q4H PRN PRN PRN Reason: Temp > 100.4 F Last Admin: 12/12/18 21:29 Dose: 500 mg Al Hydroxide/Mg Hydroxide (Mylanta Ii) 30 ml PO Q6H PRN PRN PRN Reason: dyspesia Last Admin: 12/13/18 17:27 Dose: 30 ml Bisacodyl (Dulcolax) 10 mg RECTAL DAILY PRN PRN Reason: Constipation Chlordiazepoxide (Librium) 50 mg PO Q8H WANG; Taper Stop: 12/15/18 16:59 Last Admin: 12/14/18 09:30 Dose: 50 mg Clonidine (Catapres) 0.1 mg PO Q2H PRN PRN PRN Reason: sweats Last Admin: 12/14/18 09:30 Dose: 0.1 mg Dicyclomine HCl (Bentyl) 20 mg PO Q6H PRN PRN PRN Reason: cramping Last Admin: 12/14/18 09:31 Dose: 20 mg Hydroxyzine Pamoate (Vistaril Pamoate Capsule) 50 mg PO Q6H PRN PRN PRN Reason: ANXIETY Last Admin: 12/13/18 21:14 Dose: 50 mg Sodium Chloride () 250 mls @ 15 mls/hr IV .[id number] PRN PRN Reason: SALINE FLUSH Ibuprofen (Motrin) 600 mg PO Q8H PRN PRN PRN Reason: Mild-Moderate Pain (1-5/10) Last Admin: 12/14/18 09:30 Dose: 600 mg Loperamide HCl (Imodium) 2 - 4 mg PO UD PRN PRN Reason: LOOSE STOOLS Last Admin: 12/14/18 09:29 Dose: 2 mg Lorazepam (Ativan) 2 mg PO Q2H PRN PRN; Protocol PRN Reason: CIWA score > 8 but <15 Last Admin: 12/14/18 09:30 Dose: 2 mg Lorazepam (Ativan) 2 mg IV Q2H PRN PRN; Protocol PRN Reason: CIWA score > 8 but <15 Lorazepam (Ativan) 1 mg IV Q4H PRN PRN PRN Reason: Severe Anxiety Lorazepam (Ativan) 2 mg IV X1 PRN PRN Reason: Seizure Lorazepam (Ativan) 2 mg PO UD PRN; Protocol PRN Reason: CIWA score >/=15. Last Admin: 12/13/18 17:27 Dose: 2 mg Lorazepam (Ativan) 2 mg IV UD PRN; Protocol PRN Reason: CIWA score >/=15. Last Admin: 12/12/18 16:23 Dose: 2 mg Methocarbamol (Methocarbamol) 750 mg PO Q6H PRN PRN PRN Reason: Muscle Aches Last Admin: 12/12/18 16:09 Dose: 750 mg Multivitamins (Multivitamin) 1 tablet PO DAILYCM WANG Last Admin: 12/14/18 09:30 Dose: 1 tablet Nicotine (Nicoderm Cq (Pbkc)) 21 mg TRANSDERM. DAILY WANG Last Admin: 12/14/18 09:31 Dose: 21 mg Ondansetron HCl (Zofran Odt) 4 mg PO Q6H PRN PRN PRN Reason: NAUSEA Last Admin: 12/13/18 10:26 Dose: 4 mg Senna (Senokot) 1 tablet PO QHS PRN PRN Reason: Constipation Sodium Chloride () 5 - 15 ml IV UD PRN PRN Reason: SALINE FLUSH Last Admin: 12/12/18 20:51 Dose: 10 ml Medical Necessity - Tobacco Use Smoking Status: Current every day smoker Tobacco Use: Cigarettes Assessment/Plan All Active Problems Alcohol withdrawal seizure without complication (Ruled-out) Alcohol withdrawal (Acute) This is a 43-year-old gentleman with history of chronic alcohol use vodka every day along with 3 cane of 24 ounce [place] Light and chronic smoker was admitted on [facility] floor for acute alcohol withdrawal syndrome. Patient was transferred from [facility] to [facility] ER with alcohol level more than 300. Patient was given IV Ativan and oral phenobarbital. Patient has history of sobriety for 2 to 3 years after alcohol detox last time. Denies other substance use or recreational use or drugs including ezlg-tul-brshald cold medications. Denies GI bleed, hematemesis, melena or hematochezia. No prior history of EGD or colonoscopy. 1. Acute alcohol withdrawal syndrome: Patient still has tremors, anxiety and restlessness. Complain of mild loose bowel movement and abdominal cramps. Has blurry vision but denies visual, auditory or tactile hallucinations. On order set for medical stabilization for alcohol withdrawal. embedded case manager consult for [facility] [employer] JUSTIN Jaramillo Discussed with the [employer] case assembler, Lucinda. She requested antidepressant medication for the patient as he has history of depression and relapse. Currently patient is on trazodone. Will discharge on low-dose of Seroquel. 2. Chronic alcohol use and dependence with alcoholic hepatitis: Labs shows elevated transaminases AST 155, ALT 147, GGT 166 and total bilirubin 1.5 suggestive of alcoholic hepatitis. INR 1.1. 3. Chronic smoker: On nicotine patch. Smoking cessation and alcohol cessation advised Laboratory Results 12/13/18 07:45: WBC 5.5, RBC 4.78, Hgb 14.9, Hct 43.7, MCV 91.4, MCH 31.2, MCHC 34.1, RDW 13.9, RDW Differential 45.9 H, Plt Count 184, MPV 9.8, Immature Gran % (Auto) 0.200, Neut % (Auto) 60.3, Lymph % (Auto) 30.0, [place] % (Auto) 5.6, Eos % (Auto) 3.5, Baso % (Auto) 0.4, Absolute Neuts (auto) 3.3, Absolute Lymphs (auto) 1.65, Total Counted Not Reportable 12/13/18 07:45: PT 13.6, INR 1.1 12/13/18 07:45: Sodium 137, Potassium 3.8, Chloride 106, Carbon Dioxide 28.0, Anion Gap 3 L, BUN 17, Creatinine 0.88, Estim Creat Clear Calc 118.80, Est GFR (MDRD) Af Amer 121, Est GFR (MDRD) Non-Af 100, BUN/Creatinine Ratio 19.3, Glucose 102, Calcium 8.5, Phosphorus 3.7, Magnesium 1.9, Total Bilirubin 1.50 H, GGT 166 H, AST 155 H, ALT 147 H, Alkaline Phosphatase 78, Total Protein 7.1, Albumin 3.3, Globulin 3.8, Albumin/Globulin Ratio 0.9 Code Visit Inpatient E&M: 29748 Subs Hosp L2
[2018-12-14] MEDS: Acetaminophen 500 MG Tablet PO (15:11)
[2018-12-14] MEDS: hydrOXYzine PAM 25 MG Capsule 50 MG PO (15:12)
[2018-12-14] MEDS: Folic Acid 1 MG Tablet PO (15:17)
--- NOTE | 2018-12-14 17:35 | CHAPLAIN ---
Type of Pastoral Visit ___ Initial Visit _x__ Follow-up Visit ___ On-call Visit ___ General Patient Visit ___ Spiritual Assessment ___ Family Conference ___ Bereavement ___ Rapid Response ___ Code Blue ___ Other (describe below) Pastoral Care Referral From _x__ Patient ___ Family ___ Nurse ___ Physician ___ Marine Propulsion Technician ___ [employer] ___ Other (describe below) Sacrament/Intervention _x__ Active listening ___ Anointing ___ Sikhism ___ Bereavement ___ Communion ___ Irais exploration ___ ___ Life review _x__ Prayer ___ Reconciliation ___ Sacrament of Sick _x__ Supportive presence ___ Wedding ___ Other (describe below) Pastoral Comments
[2018-12-14] MEDS: Nicotine Polacrilex 2 MG GUM PO (20:51)
[2018-12-15] MEDS: hydrOXYzine PAM 25 MG Capsule 50 MG PO (00:36)
[2018-12-15 00:38] VITALS: BP 119/74; PULSE 82; RESP 16; TEMP 36.3; O2SAT 96
[2018-12-15 00:42] VITALS: BP 119/74; PULSE 82; RESP 16; TEMP 36.3
[2018-12-15] MEDS: cloNIDine HCl 0.1 MG Tablet PO ×2 (00:46→08:48)
[2018-12-15] MEDS: LORazepam 1 MG Tablet 2 MG PO ×2 (00:46→08:48)
[2018-12-15] MEDS: chlordiazePOXIDE 25 MG Capsule PO (04:09)
--- NOTE | 2018-12-15 08:26 | NEWVISION ---
Patient has follow up appointment with [facility] on 12/16/2018 at 3:30pm. D/C transportation provided by patient's girlfriend.
[2018-12-15 08:35] VITALS: BP 106/81; PULSE 64; RESP 18; TEMP 36.4; O2SAT 95
--- NOTE | 2018-12-15 08:39 | DCINST_ITS ---
- Discharge Diagnoses Current Active Problems: Current Active and Chronic Problems Alcoholism (Chronic) Alcohol withdrawal (Acute) You will use the following diet at home:: Regular Your food should be the consistency of: Regular Discharge Activity: May Not Drive Call your doctor if you observe: Fever of 101 or Higher, Shortness of breath, Dizziness, Fainting spells, Chest pain, Increased palpitations (irregular heartbeat), Calf discomfort Additional Instructions: Need to follow up Psychiatrist in 2 weeks. Script of seroquel for intervening time. Allergies/Adverse Reactions: Allergies No Known Allergies Allergy (Verified 12/12/18 12:19) Medications to take at Discharge Multivitamins,Therapeutic [Multivitamin] 1 tablet PO DAILYCM #30 tablet 12/15/18 Nicotine [Nicoderm Cq] 21 mg TRANSDERM. DAILY #20 patch 12/15/18 Quetiapine Fumarate [Seroquel] 50 mg PO DAILY #30 tablet 12/15/18 The following prescriptions were given: Multivitamins,Therapeutic [Multivitamin] 1 tablet PO DAILYCM #30 tablet Nicotine [Nicoderm Cq] 21 mg TRANSDERM. DAILY #20 patch Quetiapine Fumarate [Seroquel] 50 mg PO DAILY #30 tablet Primary Care Physician: Care Physician,No Primary [Primary Care Provider] - Please follow up with your Primary Care Physician in: in 1-2 week Test Results: Test results from this visit will be discussed in further detail at your follow- up appointment, if applicable.
--- NOTE | 2018-12-15 08:39 | DS.PCM_ITS ---
Discharge Date and Diagnosis - Problem List Patient Problems: Active and Suspected Problems Alcohol withdrawal (Acute) Date of Admission: 12/12/18 Date of Discharge: 12/15/18 - Primary Discharge Diagnosis Active and Suspected Problems Alcohol withdrawal (Acute) - Secondary Discharge Diagnosis Chronic Problems Alcoholism (Chronic) Hospital Course and Treatment Summary of Care Provided: [] This is a 43-year-old gentleman with history of chronic alcohol use vodka every day along with 3 cane of 24 ounce [place] Light and chronic smoker [facility] floor for acute alcohol withdrawal syndrome. Patient was transferred from [facility] to [facility] ER with alcohol level more than 300. Patient was given IV Ativan and oral phenobarbital. Patient has history of sobriety for 2 to 3 years after alcohol detox last time. Denies other substance use or recreational use or drugs including qmvt-vln-xfxagwu cold medications. Denies GI bleed, hematemesis, melena or hematochezia. No prior history of EGD or colonoscopy. 1. Acute alcohol withdrawal syndrome: Patient withdrawal symptoms are well controlled. He is awake alert oriented x3. Denies visual, auditory or tactile hallucinations. Patient was treated as per order set for medical stabilization for alcohol withdrawal. Discussed with the [facility] [employer] welfare case worker, Lucinda. She requested antidepressant medication for the patient as he has history of depression and relapse. It seems patient has history of mood swing with the depression although patient did not had formal psychiatrist evaluation. Currently patient is on trazodone. On welfare case worker requesting patient and with significant history of alcohol relapse and mood being, possible depression or bipolar disorder, patient was given Seroquel prescription. Patient had tried Paxil or SSRI and Wellbutrin in the past and it did not work. 2. Chronic alcohol use and dependence with alcoholic hepatitis: Labs shows elevated transaminases AST 155, ALT 147, GGT 166 and total bilirubin 1.5 suggestive of alcoholic hepatitis. INR 1.1. 3. Chronic smoker: On nicotine patch. Smoking cessation and alcohol cessation advised Discharge medication reconciliation done. Discharge follow-up instructions completed. Discharge process discussed with the patient and all questions were answered to patient's satisfaction. Prescription for multivitamin, folic acid and thiamine were also given. Total time spent, exact 35 minutes on discharge meds reconciliation, examination, review of imaging and blood test and discussion with the patient on follow-up instructions. Laboratory Results 12/13/18 07:45: WBC 5.5, RBC 4.78, Hgb 14.9, Hct 43.7, MCV 91.4, MCH 31.2, MCHC 34.1, RDW 13.9, RDW Differential 45.9 H, Plt Count 184, MPV 9.8, Immature Gran % (Auto) 0.200, Neut % (Auto) 60.3, Lymph % (Auto) 30.0, [place] % (Auto) 5.6, Eos % (Auto) 3.5, Baso % (Auto) 0.4, Absolute Neuts (auto) 3.3, Absolute Lymphs (auto) 1.65, Total Counted Not Reportable 12/13/18 07:45: PT 13.6, INR 1.1 12/13/18 07:45: Sodium 137, Potassium 3.8, Chloride 106, Carbon Dioxide 28.0, Anion Gap 3 L, BUN 17, Creatinine 0.88, Estim Creat Clear Calc 118.80, Est GFR (MDRD) Af Amer 121, Est GFR (MDRD) Non-Af 100, BUN/Creatinine Ratio 19.3, Glucose 102, Calcium 8.5, Phosphorus 3.7, Magnesium 1.9, Total Bilirubin 1.50 H, GGT 166 H, AST 155 H, ALT 147 H, Alkaline Phosphatase 78, Total Protein 7.1, Albumin 3.3, Globulin 3.8, Albumin/Globulin Ratio 0.9 Patient Problems: Active and Suspected Problems Alcohol withdrawal (Acute) Subjective: The patient is sitting in the chair. No fever or chills. Hemodynamically stable. Mild tremors. GCS noted 15. Total CIWA score 8 - Physical Exam General: Alert, Oriented x3, Cooperative HEENT: Atraumatic, PERRLA, EOMI, Normocephalic Neck: Supple, No JVD, Negative Carotid Bruits Lungs: Clear to auscultation, Normal air movement, No rhonchi, No wheeze, No rales Cardiovascular: Regular rate, Normal S1, Normal S2, No murmurs Abdomen: Bowel Sounds Present, Soft, Non Tender, Non-Distended Extremities: No edema, Capillary Refill Less than 3 Seconds Skin: No rashes, No breakdown Musculoskeletal: No Tenderness to Palpation of Joints or Extremities Lymphatic: No Cervical, Supraclavicular, or Inguinal Adenopathy Neurological: Cranial nerves II-XII grossly intact, - - Mild tremors. Mild subjective generalized weakness Psych/Mental Status: Normal Affect, Appropriate Vital Signs Temp Pulse Resp BP Pulse Ox 97.4 F L 82 16 119/74 96 12/15/18 00:42 12/15/18 00:42 12/15/18 00:42 12/15/18 00:42 12/15/18 00:38 Oxygen Delivery Method Room Air Weight: 207 lb 7.28 oz Body Mass Index (BMI) 28.1 Intake and Output for Last 24 Hours 12/13/18 12/14/18 12/15/18 23:59 23:59 23:59 Intake Total 800 / 800 640 / 640 780 / 780 Balance 800 / 800 640 / 640 780 / 780 Discharge Activity: May Not Drive Call your doctor if you observe: Fever of 101 or Higher, Shortness of breath, Dizziness, Fainting spells, Chest pain, Increased palpitations (irregular heartbeat), Calf discomfort Home Medications: Medications to take at Discharge Multivitamins,Therapeutic [Multivitamin] 1 tablet PO DAILYCM #30 tablet 12/15/18 Nicotine [Nicoderm Cq] 21 mg TRANSDERM. DAILY #20 patch 12/15/18 Quetiapine Fumarate [Seroquel] 50 mg PO DAILY #30 tablet 12/15/18 Following Prescrptions Were Given to Patient: Multivitamins,Therapeutic [Multivitamin] 1 tablet PO DAILYCM #30 tablet Nicotine [Nicoderm Cq] 21 mg TRANSDERM. DAILY #20 patch Quetiapine Fumarate [Seroquel] 50 mg PO DAILY #30 tablet Primary Care Physician: Care Physician,No Primary [Primary Care Provider] - Please follow up with your Primary Care Physician in: in 1-2 week Medical Necessity - Tobacco Use Smoking Status: Current every day smoker Tobacco Use: Cigarettes Meaningful Use Info Meaningful Use Diagnoses (Choose all that apply): None applicable Code Visit Inpatient E&M: 93873 Disch Hosp
[2018-12-15 08:45] VITALS: PULSE 64
[2018-12-15] MEDS: Multivitamins,Therapeutic Tablet 1 TABLET PO (08:48)
[2018-12-15] MEDS: Loperamide 2 MG Capsule PO (08:48)
[2018-12-15] MEDS: Ibuprofen 600 MG Tablet PO (08:49)
--- NOTE | 2018-12-15 14:01 | NURSING ---
LEFT WITHOUT GETTING D/C INSTRUCTIONS. WARDROBE MANAGERIBRAHIMA MAYO AWARE.
== END 2018-12-15 13:30 | disposition home or self-care (01) | DRG 775 ==
LOC: ED 14:01 → MS3 15:00
PROVIDERS: Admitting Provider Internal Medicine; Emergency Provider Emergency Medicine; Visit Provider Internal Medicine
DX: F10.239 Alcohol dependence with withdrawal, unspecified (principal); F17.210 Nicotine dependence, cigarettes, uncomplicated; K70.10 Alcoholic hepatitis without ascites
CPT/HCPCS: 36415; 80053; 82977; 83735; 84100; 85025; 85610; 99285; A4216